=== PATIENT | female | born 1995 ===

== ENCOUNTER 2016-11-25 20:49 | Observation (INO) | payer MEDICAID ==
--- NOTE | 2016-11-25 21:55 | ED PDOC ---
HPI: Female Pain Time Seen by Provider: 11/25/16 21:43 Chief Complaint (Nursing): Female Genitourinary Chief Complaint (Provider): approx 15 weeks gestation, vaginal bleeding History Per: Patient History/Exam Limitations: no limitations Onset/Duration Of Symptoms: Hrs Current Symptoms Are (Timing): Still Present Quality Of Discomfort: Cramping, "Pain" Additional History Per: Patient Additional Complaint(s): 21 y/o female, approx 15 weeks gestation, presents with vaginal bleeding x 2 hours. Associated intermittent pelvic cramping x 2 days. Patient also notes "mucous" discharge x 2 weeks. Denies fever, nausea/vomiting, chest pain, shortness of breath, palpitations, changes in bowel movements, dysuria/ hematuria. Abnormal Vaginal Bleeding: Yes Last Menstral Period: 08/08/16 : 1 Para: 0 Miscarriage: 0 Past Medical History Reviewed: Historical Data, Nursing Documentation, Vital Signs Vital Signs: Last Vital Signs Temp 98.5 F 11/25/16 21:37 Pulse 61 11/25/16 21:37 Resp 16 11/25/16 21:37 BP 112/65 11/25/16 21:37 Pulse Ox 99 11/25/16 21:37 - Medical History PMH: No Chronic Diseases - Surgical History Surgical History: No Surg Hx - Family History Family History: States: No Known Family Hx - Living Arrangements Living Arrangements: With Family - Home Medications Home Medications: Ambulatory Orders Medication Instructions Recorded Multivit/Folic Acid/I 1 tab PO DAILY 11/26/16 [] Ibuprofen [Motrin Tab] 600 mg PO Q6 PRN tab 11/27/16 - Allergies Allergies/Adverse Reactions: Allergies Allergy/AdvReac Type Severity Reaction Status Date / Time No Known Allergies Allergy Verified 11/25/16 21:37 Review of Systems ROS Statement: Except As Marked, All Systems Reviewed And Found Negative Genitourinary Female: Positive for: Vaginal Bleeding, Pelvic Pain Physical Exam - Reviewed Nursing Documentation Reviewed: Yes Vital Signs Reviewed: Yes - Physical Exam Appears: Positive for: Well, Non-toxic, No Acute Distress Head Exam: Positive for: ATRAUMATIC, NORMAL INSPECTION, NORMOCEPHALIC Skin: Positive for: Normal Color Eye Exam: Positive for: Normal appearance ENT: Positive for: Normal ENT Inspection Cardiovascular/Chest: Positive for: Regular Rate, Rhythm Respiratory: Positive for: Normal Breath Sounds Gastrointestinal/Abdominal: Positive for: Normal Exam Pelvic Exam: Positive for: External Exam Normal, Other (cervix open; clear sac- like structure coming from cervix. Exam chaperoned by Thea BARRERA) Back: Positive for: Normal Inspection Extremity: Positive for: Normal ROM Neurologic/Psych: Positive for: Alert, Oriented - Laboratory Results Result Diagrams: 11/27/16 05:20 11/25/16 22:27 - ECG O2 Sat by Pulse Oximetry: 99 - Progress ED Course And Treament: labs, urine, pelvis u/s Case discussed with Dr. Gutierrez, back tender paper machine on-call; states sounds like patient could be miscarrying, but needs u/s for further eval EXAM: US Uterus, Limited CLINICAL HISTORY: 21 years old, female; Pain; complicated by abdominal or pelvic pain; Lower; Second trimester; Gestational age or lmp: 08/07/2016; ; Additional info: Vaginal bleeding, pelvic pain TECHNIQUE: Real-time ultrasound of the maternal uterus (limited) with image documentation. 5 Real time cine loop images are submitted. 75 static images are submitted. 440 images are submitted. COMPARISON: No relevant prior studies available. FINDINGS: Fetus: The average ultrasound age of the fetus was measured at 15 weeks and 5 days. There is motion. The gestational age calculated from BPD is 15 weeks 6 days and head circumference is 15 weeks 5 days. The gestational age calculated from abdominal circumference is 15 weeks 5 days and femur length is 15 weeks 4 days. Position: There is a poole fetus in the vertex/cephalic presentation. Heart rate: The heart rate was measured at 147 beats per minute. Biometrics: organs: 4 chamber heart, stomach, are seen. Placenta: The placenta is posterior in location. No placenta previa. Small placental venous luevano. Amniotic fluid: There's an adequate amount of amniotic fluid. Cervix: The cervix is effaced and open. There is funneling of the internal cervical os. Correlation with patient's clinical data of incompetent cervix is recommended. These findings were communicated to physician's daycare assistant Ella Medina at 1:50 AM by the technologist performing the examination. Bladder: Partially distended maternal bladder. IMPRESSION: 1. The cervix is effaced and open. There is funneling of the internal cervical os. Correlation with patient's clinical data of incompetent cervix is recommended. These findings were communicated to physician's daycare assistant Ella Medina at 1:50 AM by the technologist performing the examination. 2. No evidence for placenta previa. 3. Gravid uterus with intrauterine live fetus as described in vertex presentation. Patient evaluated by Dr. Reddy, will place in observation for medical management of inevitable . IV morphine dose ordered for pain. Disposition - Clinical Impression Clinical Impression: Inevitable - Patient ED Disposition Is Patient to be Admitted: Yes - Disposition Disposition Time: 02:55 Condition: FAIR
[2016-11-25 22:32] LABS: BASO # 0.1 K/uL (0.0-0.2); BASO % 0.5 % (0.0-2.0); EOS # 0.1 K/uL (0.0-0.7); EOS % 0.8 % (0.0-4.0); HEMATOCRIT 39.8 % (34.0-47.0); LYMPH # 2.9 K/uL (1.0-4.3); LYMPH % 21.4 % (20.0-40.0); MEAN CELL VOLUME 87.1 fl (81.0-99.0); MEAN CORPUSCULAR HEMOGLOBIN 28.4 pg (27.0-31.0); MEAN CORPUSCULAR HGB CONC 32.7 g/dL (33.0-37.0); MEAN PLATELET VOLUME 8.9 fl (7.2-11.7); MONO # 0.8 K/uL (0.0-0.8); MONO % 6.3 % (0.0-10.0); NEUT # 9.6 K/uL (1.8-7.0); WHITE BLOOD COUNT 13.5 K/uL (4.8-10.8)
[2016-11-25 22:35] LABS: URINE BACTERIA FEW (<OCC); URINE BILIRUBIN NEGATIVE (NEGATIVE); URINE BLOOD LARGE (NEGATIVE); URINE COLOR AMBER (YELLOW); URINE GLUCOSE (UA) 50 mg/dL (Normal); URINE KETONE 20 mg/dL (NEGATIVE); URINE LEUKOCYTE ESTERASE SMALL Leu/uL (Negative); URINE PROTEIN 100 mg/dL (NEGATIVE); URINE UROBILINOGEN 0.2-1.0 mg/dL (0.2-1.0); WBC URINE 18 /hpf (0-5)
[2016-11-25 22:44] LABS: ALB/GLOB RATIO 1.3 (1.0-2.1); ALKALINE PHOSPHATASE 62 U/L (38-126); ALT/SGPT 100 U/L (9-52); AST/SGOT 45 U/L (14-36); BILIRUBIN,TOTAL 0.3 mg/dl (0.2-1.3); BLOOD UREA NITROGEN 6 mg/dl (7-17); CALCIUM 9.2 mg/dL (8.4-10.2); CARBON DIOXIDE 22 mmol/L (22-30); CHLORIDE 104 mmol/L (98-107); GFR AFRICAN-AMERICAN > 60; GLUCOSE,RANDOM 110 mg/dL (65-105); POTASSIUM 3.5 MMOL/L (3.6-5.0); SODIUM 137 mmol/l (132-148); TOTAL PROTEIN 7.1 G/DL (6.3-8.2)
[2016-11-25 22:52] LABS: RBC URINE 25 /hpf (0-3)
--- NOTE | 2016-11-26 02:19 | US ---
EXAM: US Uterus, Limited CLINICAL HISTORY: 21 years old, female; Pain; complicated by abdominal or pelvic pain; Lower; Second trimester; Gestational age or lmp: 08/07/2016; ; Additional info: Vaginal bleeding, pelvic pain TECHNIQUE: Real-time ultrasound of the maternal uterus (limited) with image documentation. 5 Real time cine loop images are submitted. 75 static images are submitted. 440 images are submitted. COMPARISON: No relevant prior studies available. FINDINGS: Fetus: The average ultrasound age of the fetus was measured at 15 weeks and 5 days. There is motion. The gestational age calculated from BPD is 15 weeks 6 days and head circumference is 15 weeks 5 days. The gestational age calculated from abdominal circumference is 15 weeks 5 days and femur length is 15 weeks 4 days. Position: There is a poole fetus in the vertex/cephalic presentation. Heart rate: The heart rate was measured at 147 beats per minute. Biometrics: organs: 4 chamber heart, stomach, are seen. Placenta: The placenta is posterior in location. No placenta previa. Small placental venous luevano. Amniotic fluid: There's an adequate amount of amniotic fluid. Cervix: The cervix is effaced and open. There is funneling of the internal cervical os. Correlation with patient's clinical data of incompetent cervix is recommended. These findings were communicated to physician's administrative library assistant Ella Medina at 1:50 AM by the technologist performing the examination. Bladder: Partially distended maternal bladder. IMPRESSION: 1. The cervix is effaced and open. There is funneling of the internal cervical os. Correlation with patient's clinical data of incompetent cervix is recommended. These findings were communicated to physician's administrative library assistant Ella Medina at 1:50 AM by the technologist performing the examination. 2. No evidence for placenta previa. 3. Gravid uterus with intrauterine live fetus as described in vertex presentation. Compliments to the technologist for a study of excellent quality.
--- NOTE | 2016-11-26 03:12 | CP.PCM.HP ---
<Mohini Medrano - Last Filed: 11/26/16 04:00> History of Present Illness - History of Present Illness History of Present Illness: 21 yo F, at 15.4 weeks gestation by CARMINE as told to patient by ultrasound presented to the emergency room due to abdominal pain and cramping that started earlier in the day. Around 7-8 pm, pt noticed some vaginal bleeding/spotting, which prompted her to come to the ED. She denies any loss of fluid at this time , but states that she has had increased amounts of mucous vaginal discharge for the past 1-2 weeks. Denies fevers or any signs of being ill or sick recently. Allergies: NKDA Medications: pre-kari vitamins Past medical hx: none/denies Past OBhx: none, denies other pregnancies. Past TRUCK TERMINAL MANAGER hx: Menarche age 11. Periods occur regularly every month. Chlamydia, age 17, treated. States had PAP in February of this year, denies hx of abnormal results. Past Surg hx: none/denies Social hx: denies tobacco use, alcohol use, drug use. Family hx: more than 1 loss of in maternal cousin. Maternal side has history of hypertension (mother, maternal grandparents). Paternal side has hx diabetes (paternal grandparents). care at private clinic in [place]. Ultrasound done in ED shows: FINDINGS: Fetus: The average ultrasound age of the fetus was measured at 15weeks and 5 days. There is motion. The gestational age calculated from BPD is 15 weeks 6 days and head circumference is 15 weeks 5 days. The gestational age calculated from abdominal circumference is 15 weeks 5 days and femur length is 15 weeks 4 days. Position: There is a poole fetus in the vertex/cephalic presentation. Heart rate: The heart rate was measured at 147 beats per minute. Biometrics: organs: 4 chamber heart, stomach, are seen. Placenta: The placenta is posterior in location. No placenta previa. Small placental venous luevano. Amniotic fluid: There's an adequate amount of amniotic fluid. Cervix: The cervix is effaced and open. There is funneling of the internal cervical os. Correlation with patient's clinical data of incompetent cervix is recommended. Bladder: partially distended maternal bladder. IMPRESSION: The cervix is effaced and open. There is funneling of the internal cervical os. Correlation with patient's clinical data of incompetent cervix is recommended. No evidence of placenta previa. Gravid uterus with intrauterine live fetus as described in vertex presentation. Present on Admission - Present on Admission Any Indicators Present on Admission: No Review of Systems - Constitutional Constitutional: absent: Chills, Fever - Reproductive: Female Reproductive:Female: Abnormal Vaginal Bleeding, Vaginal Discharge Past Patient History - Past Medical History & Family History Past Medical History?: Yes Pertinent Family History: more than 1 loss of (maternal cousin) hypertension (mother, maternal grandparents) diabetes (paternal grandparents) - Past Social History Smoking Status: Never Smoked Alcohol: None Drugs: Denies Meds Allergies/Adverse Reactions: Allergies Allergy/AdvReac Type Severity Reaction Status Date / Time No Known Allergies Allergy Verified 11/25/16 21:37 Physical Exam - Exam Additional comments: on speculum exam: bulging membranes visible Results - Vital Signs Recent Vital Signs: Last Vital Signs Temp 98.5 F 11/25/16 21:37 Pulse 61 11/25/16 21:37 Resp 16 11/25/16 21:37 BP 112/65 11/25/16 21:37 Pulse Ox 99 11/26/16 03:04 - Labs Result Diagrams: 11/25/16 22:27 11/25/16 22:27 Labs: Laboratory Results - last 24 hr 11/25/16 11/25/16 11/25/16 21:57 22:27 22:27 WBC 13.5 H RBC 4.57 Hgb 13.0 Hct 39.8 MCV 87.1 MCH 28.4 MCHC 32.7 L RDW 13.0 Plt Count 261 MPV 8.9 Neut % (Auto) 71.0 Lymph % (Auto) 21.4 [place] % (Auto) 6.3 Eos % (Auto) 0.8 Baso % (Auto) 0.5 Neut # 9.6 H Lymph # 2.9 [place] # 0.8 Eos # 0.1 Baso # 0.1 Sodium 137 Potassium 3.5 L Chloride 104 Carbon Dioxide 22 Anion Gap 15 BUN 6 L Creatinine 0.5 L Est GFR ( Amer) > 60 Est GFR (Non-Af Amer) > 60 Random Glucose 110 H Calcium 9.2 Total Bilirubin 0.3 AST 45 H ALT 100 H Alkaline Phosphatase 62 Total Protein 7.1 Albumin 4.0 Globulin 3.1 Albumin/Globulin Ratio 1.3 Beta HCG, Quant 04314.00 Urine Color Urine Clarity Urine pH Ur Specific [place] Urine Protein Urine Glucose (UA) Urine Ketones Urine Blood Urine Nitrate Urine Bilirubin Urine Urobilinogen Ur Leukocyte Esterase Urine RBC (Auto) Urine Microscopic WBC Ur Squamous Epith Cells Urine Bacteria Blood Type O POSITIVE Antibody Screen Negative BBK History Checked No verified bt 11/25/16 22:27 WBC RBC Hgb Hct MCV MCH MCHC RDW Plt Count MPV Neut % (Auto) Lymph % (Auto) [place] % (Auto) Eos % (Auto) Baso % (Auto) Neut # Lymph # [place] # Eos # Baso # Sodium Potassium Chloride Carbon Dioxide Anion Gap BUN Creatinine Est GFR ( Amer) Est GFR (Non-Af Amer) Random Glucose Calcium Total Bilirubin AST ALT Alkaline Phosphatase Total Protein Albumin Globulin Albumin/Globulin Ratio Beta HCG, Quant Urine Color Cris Urine Clarity Cloudy Urine pH 6.0 Ur Specific [place] 1.029 Urine Protein 100 Urine Glucose (UA) 50 Urine Ketones 20 Urine Blood Large Urine Nitrate Negative Urine Bilirubin Negative Urine Urobilinogen 0.2-1.0 Ur Leukocyte Esterase Small Urine RBC (Auto) 25 H Urine Microscopic WBC 18 H Ur Squamous Epith Cells 7 H Urine Bacteria Few H Blood Type Antibody Screen BBK History Checked Assessment & Plan - Assessment and Plan (Free Text) Assessment: 21 yo at 15 weeks 4 days gestational age, in process of inevitable spontaneous . Plan: -Admit to med/surg floor -NPO -Lactated Ringers @ 125 ml/hr -Morphine 2mg every 2 hours PRN for pain -Misoprostol in AM; 400 mcg every 3 hours for maximum of 5 doses -Monitor and observe for progression of delivery of fetus -Pitocin post-delivery, as needed. Case discussed with Dr. Gutierrez <Patti Gutierrez - Last Filed: 11/26/16 08:39> Results - Vital Signs Recent Vital Signs: Last Vital Signs Temp 98 F 11/26/16 08:04 Pulse 60 11/26/16 08:04 Resp 18 11/26/16 08:04 BP 98/61 L 11/26/16 08:04 Pulse Ox 100 11/26/16 08:04 - Labs Result Diagrams: 11/25/16 22:27 11/25/16 22:27 Labs: Laboratory Results - last 24 hr 11/25/16 11/25/16 11/25/16 21:57 22:27 22:27 WBC 13.5 H RBC 4.57 Hgb 13.0 Hct 39.8 MCV 87.1 MCH 28.4 MCHC 32.7 L RDW 13.0 Plt Count 261 MPV 8.9 Neut % (Auto) 71.0 Lymph % (Auto) 21.4 [place] % (Auto) 6.3 Eos % (Auto) 0.8 Baso % (Auto) 0.5 Neut # 9.6 H Lymph # 2.9 [place] # 0.8 Eos # 0.1 Baso # 0.1 Sodium 137 Potassium 3.5 L Chloride 104 Carbon Dioxide 22 Anion Gap 15 BUN 6 L Creatinine 0.5 L Est GFR ( Amer) > 60 Est GFR (Non-Af Amer) > 60 Random Glucose 110 H Calcium 9.2 Total Bilirubin 0.3 AST 45 H ALT 100 H Alkaline Phosphatase 62 Total Protein 7.1 Albumin 4.0 Globulin 3.1 Albumin/Globulin Ratio 1.3 Beta HCG, Quant 66816.00 Urine Color Urine Clarity Urine pH Ur Specific [place] Urine Protein Urine Glucose (UA) Urine Ketones Urine Blood Urine Nitrate Urine Bilirubin Urine Urobilinogen Ur Leukocyte Esterase Urine RBC (Auto) Urine Microscopic WBC Ur Squamous Epith Cells Urine Bacteria Blood Type O POSITIVE Antibody Screen Negative BBK History Checked No verified bt 11/25/16 22:27 WBC RBC Hgb Hct MCV MCH MCHC RDW Plt Count MPV Neut % (Auto) Lymph % (Auto) [place] % (Auto) Eos % (Auto) Baso % (Auto) Neut # Lymph # [place] # Eos # Baso # Sodium Potassium Chloride Carbon Dioxide Anion Gap BUN Creatinine Est GFR ( Amer) Est GFR (Non-Af Amer) Random Glucose Calcium Total Bilirubin AST ALT Alkaline Phosphatase Total Protein Albumin Globulin Albumin/Globulin Ratio Beta HCG, Quant Urine Color Cris Urine Clarity Cloudy Urine pH 6.0 Ur Specific [place] 1.029 Urine Protein 100 Urine Glucose (UA) 50 Urine Ketones 20 Urine Blood Large Urine Nitrate Negative Urine Bilirubin Negative Urine Urobilinogen 0.2-1.0 Ur Leukocyte Esterase Small Urine RBC (Auto) 25 H Urine Microscopic WBC 18 H Ur Squamous Epith Cells 7 H Urine Bacteria Few H Blood Type Antibody Screen BBK History Checked Assessment & Plan - Assessment and Plan (Free Text) Plan: OB hospitalist Addendum: Pt seen and examined by me. Agree w/ above. 21 yo G1 at 15+3 weeks by EDC 05/16/2017 per pt's reports, w/ bulging membranes on speculum exam, w/ u/s revealing cervix is effaced and open, c/w inevitable . Discussed the dx w/ pt and her mother. Discussed the possibility that she may have an incompetent cervix and may need a cerclage placed early in her next . Pt admitted to med/surg for delivery. Will place misoprostol 400 mcg q 3 hours for a maximum of 5 doses. First dose placed at 8am. Pt ordered for morphine 2 mg IV q 2 hours PRN. (ES)
[2016-11-26] MEDS: Lactated Ringer's 1,000 ML IV SCH ×3 (04:21→19:45)
[2016-11-26] MEDS ORDERED: Chlorhexidine Gluconate 1 APPL/PKT TP ONE (08:06)
[2016-11-26] MEDS ORDERED: Oxycodone/Acetaminophen 5/325 mg Tab PO PRN (18:27)
--- NOTE | 2016-11-26 23:42 | CP.PCM.PN ---
Subjective - Date & Time of Evaluation Date of Evaluation: 11/26/16 Time of Evaluation: 11:38 - Subjective Subjective: Late Entry: Called by nurse to evaluate patient who had passed fetus. Objective: 15 week fetus seen with cord still attached to the placenta. Exam showed that the placenta was still within the uterus. Impression: Inevitable spontaneous Plan: Cord clamped and cut. Fetus to be wrapped in blanket and prepared so the patient could hold fetus as patient requested Misoprostol 400 g sublingually Await placental delivery. Objective - Vital Signs/Intake and Output Vital Signs (last 24 hours): Temp Pulse Resp BP Pulse Ox 98.5 F 62 20 100/60 99 11/26/16 21:00 11/26/16 21:00 11/26/16 21:00 11/26/16 21:00 11/26/16 21:00 - Medications Medications: Current Medications Lactated Ringer's (Lactated Ringer's) 1,000 mls @ 125 mls/hr IV .Q8H [facility] Last Admin: 11/26/16 13:15 Dose: 125 mls/hr Oxytocin 20 units/ Sodium (Chloride) 1,002 mls @ 125 mls/hr IV .Q8H1M [facility] Last Admin: 11/26/16 18:40 Dose: 125 mls/hr Ibuprofen (Motrin Tab) 600 mg PO Q6 PRN PRN Reason: Pain, Mild (1-3) Oxycodone/Acetaminophen (Percocet 5/325 Mg Tab) 1 tab PO ONCE PRN PRN Reason: Pain, moderate (4-7) Stop: 11/29/16 18:28 - Labs Labs: 11/25/16 22:27 11/25/16 22:27
--- NOTE | 2016-11-26 23:53 | CP.PCM.PN ---
Subjective - Date & Time of Evaluation Date of Evaluation: 11/26/16 Time of Evaluation: 11:47 - Subjective Subjective: Called by nurse to reevaluate pt to see if placenta delivered. S: no ne w c/o o: Placenta visualized delivered; pt advised to push and remaining portion removed from vaginal vault i: complete spont ab p:Begin 30U of pit/ 500cc LR Pt advised pelvic rest x6wks f/u with ob clinic in 2-4wks pt advised that with next she will need serial us for cervical length , possible cerclage, and tx for prevention of labor with josee Objective - Vital Signs/Intake and Output Vital Signs (last 24 hours): Temp Pulse Resp BP Pulse Ox 98.5 F 62 20 100/60 99 11/26/16 21:00 11/26/16 21:00 11/26/16 21:00 11/26/16 21:00 11/26/16 21:00 - Medications Medications: Current Medications Lactated Ringer's (Lactated Ringer's) 1,000 mls @ 125 mls/hr IV .Q8H [facility] Last Admin: 11/26/16 13:15 Dose: 125 mls/hr Oxytocin 20 units/ Sodium (Chloride) 1,002 mls @ 125 mls/hr IV .Q8H1M [facility] Last Admin: 11/26/16 18:40 Dose: 125 mls/hr Ibuprofen (Motrin Tab) 600 mg PO Q6 PRN PRN Reason: Pain, Mild (1-3) Oxycodone/Acetaminophen (Percocet 5/325 Mg Tab) 1 tab PO ONCE PRN PRN Reason: Pain, moderate (4-7) Stop: 11/29/16 18:28 - Labs Labs: 11/25/16 22:27 11/25/16 22:27
[2016-11-27 06:34] VITALS: O2SAT 99
[2016-11-27 06:40] LABS: HEMATOCRIT 35.2 % (34.0-47.0); MEAN CELL VOLUME 86.8 fl (81.0-99.0); MEAN CORPUSCULAR HEMOGLOBIN 29.3 pg (27.0-31.0); MEAN CORPUSCULAR HGB CONC 33.7 g/dL (33.0-37.0); RED CELL DISTRIBUTION WIDTH 13.4 % (11.5-14.5); WHITE BLOOD COUNT 10.2 K/uL (4.8-10.8)
[2016-11-27 08:15] VITALS: BP 90/51; PULSE 60; RESP 18; TEMP 98.3
--- NOTE | 2016-11-27 14:45 | CP.SDSHP ---
Same Day Surgery H & P - Allergies Allergies: Allergies No Known Allergies Allergy (Verified 11/25/16 21:37) - Physical Exam Vital Signs: Vital Signs 11/27/16 08:15 Temperature 98.3 F Pulse Rate 60 Respiratory 18 Rate Blood Pressure 90/51 L O2 Sat by Pulse 99 Oximetry Short Stay Discharge - Short Stay Discharge Admitting Diagnosis/Reason for Visit: INEVITABLE Referrals: Patti Gutierrez MD [Staff Provider] - Instructions: Spontaneous Miscarriage (DC) Progress Note/Discharge Note with Instructions: Patient doing well reports minimal vaginal bleeding Patient cleared for discharge today Patient to take Motrin for any uterine cramps Patient to follow up with PMD
== END 2016-11-27 15:25 | disposition home or self-care (01) ==
LOC: H.ER 20:49 → H.ERHOLD 11-26 03:11 → H.MEDSURG1 11-26 04:05
PROVIDERS: ADMIT Obstetrics & Gynecology; ATTEND Obstetrics & Gynecology
DX: O03.9 Complete or unspecified spontaneous abortion without complication (principal); R10.2 Pelvic and perineal pain; Z3A.15 15 weeks gestation of pregnancy
CPT/HCPCS: 36415; 76815; 80053; 81003; 81025; 84702; 85025; 85027; 86850; 86900; 87086; 88305; 99283; G0378; J2270; J2590; J7040; J7120